=== PATIENT | male | born 1995 | race Caucasian/White ===

== ENCOUNTER 2019-04-12 01:11 | Emergency (ER) | payer OTHER ==
[~2019-04-12] VITALS: Ht 185.4 cm; Wt 95.5 kg
[2019-04-12 03:02] LABS: TRICYCLIC ANTIDEPRESS URINE NEGATIVE
[2019-04-12 05:20] VITALS: BP 117/53; PULSE 88
== END 2019-04-12 05:20 | disposition home or self-care (01) ==
LOC: COL.ER 01:11
PROVIDERS: Nurse Practitioner
DX: F10.129 Alcohol abuse with intoxication, unspecified (principal); Y90.8 Blood alcohol level of 240 mg/100 ml or more
CPT/HCPCS: J7030